=== PATIENT | male | born 1950 | race Caucasian/White ===

== ENCOUNTER → 2017-09-24 | Outpatient (CLI) | payer MEDICARE ==
[2017-09-24 14:55] LABS: CREATININE 0.9 mg/dL (0.5-1.5)
== END | disposition home or self-care (01) ==
LOC: LAB 14:00
PROVIDERS: ATTEND Internal Medicine
DX: J98.4 Other disorders of lung (principal)
CPT/HCPCS: 36415; 82565; 84520

== ENCOUNTER → 2017-09-27 | Outpatient (CLI) | payer MEDICARE ==
[~2017-09-27] MED LIST: IOPAMIDOL-370 75 ML VIAL IV ONE
== END | disposition home or self-care (01) ==
LOC: RAH 10:00
PROVIDERS: ATTEND Internal Medicine
DX: R91.1 Solitary pulmonary nodule (principal); I71.2 Thoracic aortic aneurysm, without rupture; I70.0 Atherosclerosis of aorta; I25.10 Atherosclerotic heart disease of native coronary artery without angina pectoris
CPT/HCPCS: 71260; Q9967

== ENCOUNTER → 2018-10-24 | Outpatient (CLI) | payer MEDICARE | END | disposition home or self-care (01) | LOC: RAH 14:19 | PROVIDERS: ATTEND Internal Medicine | DX: J98.4 Other disorders of lung (principal) | CPT/HCPCS: 71250 ==

== ENCOUNTER 2021-11-08 14:05 | Emergency (ER) | payer MEDICARE ==
[~2021-11-08] VITALS: Ht 175.3 cm; Wt 72.6 kg
[2021-11-08] MEDS ORDERED: KETOROLAC 15MG/ML VIAL (15MG/ML) ONE (14:22)
[2021-11-08] MEDS ORDERED: CLINDAMYCIN IVPB 600MG/50ML 50 ML IV ONE (14:22)
[2021-11-08 14:30] LABS: BASOPHILS % (AUTO) 0.3 % (0.0-5.0); EOSINOPHILS % (AUTO) 0.7 % (0.0-8.0); HEMATOCRIT 43.2 % (42-54); LYMPHOCYTES % (AUTO) 12.7 % (21.0-51.0); MEAN CORPUSCULAR HEMOGLOBIN 29.9 pg (27.0-33.0); MEAN CORPUSCULAR HGB CONC 34.3 g/dL (32.0-36.0); MEAN CORPUSCULAR VOLUME 87.3 fL (79-99); MONOCYTES % (AUTO) 8.7 % (3.0-13.0); NEUTROPHILS % (AUTO) 77.2 % (40.0-77.0); PLATELET COUNT (AUTO) 144 K/uL (130-400); RED BLOOD CELL COUNT(AUTO) 4.95 MIL/uL (4.50-6.20); RED CELL DISTRIBUTION WIDTH 12.4 % (11.0-15.5); WHITE BLOOD COUNT (AUTO) 10.2 K/uL (4.8-10.8)
[2021-11-08] MEDS ORDERED: 0.9%NACL 1000ML 1,000 ML IV ONE (14:30)
[2021-11-08] MEDS ORDERED: KETOROLAC 15MG/ML VIAL (15MG/ML) IV ONE (14:30)
[2021-11-08] MEDS ORDERED: CLINDAMYCIN IVPB 600MG/50ML 50 ML IV SCH (14:30)
[2021-11-08 14:43] LABS: CREATININE 0.8 mg/dL (0.5-1.5); POTASSIUM 3.5 mmol/L (3.5-5.1)
[2021-11-08 14:49] LABS: ALBUMIN 3.7 g/dL (3.5-5.0); BILIRUBIN,TOTAL 1.4 mg/dL (0.2-1.0); TOTAL PROTEIN, SERUM 7.3 g/dL (6.0-8.3)
[2021-11-08 15:37] LABS: ERYTHROCYTE SEDIMENTATION RATE 5 MM/HR (0-20)
[2021-11-08] MEDS ORDERED: CLIN-141 PO (17:17)
[2021-11-08 17:44] VITALS: BP 123/73
== END 2021-11-08 17:34 | disposition home or self-care (01) ==
LOC: EDH 14:05
DX: S61.451A Open bite of right hand, initial encounter (principal); L03.113 Cellulitis of right upper limb; Z88.0 Allergy status to penicillin; Z90.89 Acquired absence of other organs; W54.0XXA Bitten by dog, initial encounter; Y93.89 Activity, other specified; Y92.89 Other specified places as the place of occurrence of the external cause; Y99.8 Other external cause status
CPT/HCPCS: 36415; 73130; 80053; 83605; 85025; 85651; 87040 ×2; 96365; 96366; 96375; 99284; J1885; J3490

== ENCOUNTER 2022-04-20 05:38 | Observation (INO) | payer MEDICARE ==
[2022-04-17 11:32] LABS: BASOPHILS % (AUTO) 0.5 % (0.0-5.0); HEMATOCRIT 42.8 % (42-54); LYMPHOCYTES % (AUTO) 20.9 % (21.0-51.0); MEAN CORPUSCULAR HEMOGLOBIN 30.4 pg (27.0-33.0); MEAN CORPUSCULAR HGB CONC 34.6 g/dL (32.0-36.0); MEAN CORPUSCULAR VOLUME 87.9 fL (79-99); MONOCYTES % (AUTO) 8.2 % (3.0-13.0); NEUTROPHILS % (AUTO) 69.1 % (40.0-77.0); PLATELET COUNT (AUTO) 139 K/uL (130-400); RED BLOOD CELL COUNT(AUTO) 4.87 MIL/uL (4.50-6.20); RED CELL DISTRIBUTION WIDTH 12.3 % (11.0-15.5)
[2022-04-17 11:37] LABS: ALBUMIN 3.9 g/dL (3.5-5.0); CARBON DIOXIDE 31 mmol/L (21-32); CHLORIDE 102 mmol/L (101-111); CREATININE 0.8 mg/dL (0.5-1.5); GLOMERULAR FILTR. RATE CALC 101 mL/min (>60); GLUCOSE,RANDOM 103 mg/dL (70-105); POTASSIUM 3.6 mmol/L (3.5-5.1); SODIUM SERUM 139 mmol/L (136-145); UREA NITROGEN, BLOOD 20 mg/dL (7-18)
[2022-04-17 11:40] LABS: CRP QUANTITATIVE < 2.00 mg/L (0.00-9.0)
[2022-04-17 11:40] LABS: APPEARANCE,URINE CLEAR (CLEAR); BILIRUBIN,URINE NEGATIVE (NEGATIVE); COLOR,URINE YELLOW (YELLOW); GLUCOSE, URINE (UA) NEGATIVE (NEGATIVE); KETONES,URINE NEGATIVE (NEGATIVE); LEUKOCYTE ESTERASE ,URINE NEGATIVE (NEGATIVE); NITRATE,URINE NEGATIVE (NEGATIVE); OCCULT BLOOD,URINE NEGATIVE (NEGATIVE); PROTEIN,URINE NEGATIVE (NEGATIVE); UROBILINOGEN,URINE 0.2 mg/dL (0.2-1.0)
[2022-04-17 11:43] LABS: PROTHROMBIN TIME 10.9 SEC (9.6-11.6)
[2022-04-17 11:45] LABS: PARTIAL THROMBOPLASTIN TIME 27.1 SEC (26.3-35.5)
[2022-04-17 15:05] VITALS: BP 136/82
[2022-04-20] VITALS (25 sets, daily range): BP systolic 117–147; BP diastolic 64–90
[~2022-04-20] VITALS: Ht 175.3 cm; Wt 76.2 kg
[2022-04-20] MEDS ORDERED: LACTATED RINGERS 1000ML 1,000 ML IV ONE (05:59)
[2022-04-20] MEDS ORDERED: CLINDAMYCIN IVPB 900MG/50ML 50 ML IV SCH (06:00)
[2022-04-20] MEDS ORDERED: KETOROLAC 30MG VIAL (30MG/ML) ONE (06:50)
[2022-04-20] MEDS ORDERED: ROPIVACAINE 0.5% 5MG/ML 30ML IJ ONE ×2 (06:50→07:15)
[2022-04-20] MEDS ORDERED: SUCCINYLCHOLINE CHLORIDE 20 MG/ML 10 ML VIAL ONE (07:13)
[2022-04-20] MEDS ORDERED: PROPOFOL 10 MG/ML 20ML VIAL IV ONE (07:13)
[2022-04-20] MEDS ORDERED: ROCURONIUM 10MG/1ML SYR 10 MG/ML ML ONE (07:14)
[2022-04-20] MEDS ORDERED: DEXAMETHASONE SOD PHOSPHATE 10MG/ML 1ML VIAL ONE (07:14)
[2022-04-20] MEDS ORDERED: MIDAZOLAM HCL 1 MG/ML 2ML VIAL ONE (07:14)
[2022-04-20] MEDS ORDERED: ONDANSETRON 4MG INJ ONE (07:14)
[2022-04-20] MEDS ORDERED: NEOSTIGMINE 5MG/5ML SYR IV ONE (07:14)
[2022-04-20] MEDS ORDERED: GLYCOPYRROLATE 1 MG/5 ML SYRINGE ONE (07:14)
[2022-04-20] MEDS ORDERED: FENTANYL CITRATE PF 50 MCG/1 ML 2ML VIAL ONE ×2 (07:15→07:46)
[2022-04-20] MEDS ORDERED: TRANEXAMIC ACID 1000MG/10ML ONE (07:49)
[2022-04-20] MEDS ORDERED: MEPERIDINE-PF 25 MG/ML SYG ONE ×2 (09:14→10:12)
[2022-04-20] MEDS ORDERED: LIDOCAINE HCL-MPF 1% 2ML VIAL IV PRN (10:00)
[2022-04-20] MEDS ORDERED: CYCLOBENZAPRINE HCL 10 MG TABLET PO PRN (10:00)
[2022-04-20] MEDS ORDERED: FERROUS FUMARATE 324 MG TABLET PO PRN (10:00)
[2022-04-20] MEDS ORDERED: ONDANSETRON 4MG INJ IVP PRN (10:00)
[2022-04-20] MEDS ORDERED: CALCIUM CARB 500MG PO PRN (10:00)
[2022-04-20] MEDS ORDERED: TRAMADOL HCL 50 MG TABLET PO PRN (10:00)
[2022-04-20] MEDS ORDERED: POTASSIUM CHLORIDE 20MEQ/100ML 100 ML IV PRN (10:00)
[2022-04-20] MEDS ORDERED: KCL 20 MEQ ERTAB PO PRN (10:00)
[2022-04-20] MEDS ORDERED: 0.9%NACL 1000ML 1,000 ML IV SCH (10:00)
[2022-04-20] MEDS ORDERED: HYDROCODONE/ACETAMINOPHEN 5/325 MG TAB PO PRN ×2 (10:00)
[2022-04-20] MEDS ORDERED: POTASSIUM CHLORIDE 10% ELIXIR 20 MEQ/15 ML UDCUP PO PRN (10:00)
[2022-04-20] MEDS: KETOROLAC 15MG/ML VIAL (15MG/ML) IV SCH ×3 (11:13→21:13)
[2022-04-20] MEDS: GABAPENTIN 100 MG CAPSULE PO SCH ×2 (14:11→21:05)
[2022-04-20] MEDS: CLINDAMYCIN IVPB 900MG/50ML 50 ML IV SCH ×2 (15:23→23:00)
[2022-04-20] MEDS: DOCUSATE SODIUM 100 MG CAP PO SCH (21:05)
[2022-04-21 01:18] VITALS: BP 111/60
[2022-04-21 04:27] VITALS: BP 113/64
[2022-04-21 06:00] LABS: HEMATOCRIT 38.1 % (42-54); MEAN CORPUSCULAR HEMOGLOBIN 30.5 pg (27.0-33.0); MEAN CORPUSCULAR HGB CONC 34.4 g/dL (32.0-36.0); MEAN CORPUSCULAR VOLUME 88.6 fL (79-99); RED BLOOD CELL COUNT(AUTO) 4.3 MIL/uL (4.50-6.20); RED CELL DISTRIBUTION WIDTH 12.4 % (11.0-15.5)
[2022-04-21] MEDS ORDERED: CLINDAMYCIN IVPB 900MG/50ML 50 ML IV ONE (06:16)
[2022-04-21 06:18] LABS: CREATININE 0.8 mg/dL (0.5-1.5); POTASSIUM 3.2 mmol/L (3.5-5.1)
[2022-04-21] MEDS: DOCUSATE SODIUM 100 MG CAP PO SCH (07:54)
[2022-04-21 08:28] VITALS: BP 114/58
[2022-04-21] MEDS ORDERED: ASPIRIN 325MG TAB PO SCH (09:00)
[2022-04-21] MEDS ORDERED: POLYETHYLENE GLYCOL 3350 17 GM POWD.PACK PO SCH (09:00)
[2022-04-21] MEDS: GABAPENTIN 100 MG CAPSULE PO SCH ×2 (09:42→14:31)
[2022-04-21 11:08] VITALS: BP 109/57
[2022-04-21 16:01] VITALS: BP 103/57
[2022-04-21] MEDS ORDERED: ASPI-1026 PO (16:29)
[2022-04-21] MEDS ORDERED: Docusate Sodium 100 Mg Cap PO (16:29)
[2022-04-21] MEDS ORDERED: HYDR-4060 PO (16:29)
[2022-04-21] MEDS ORDERED: CYCL-309 PO (16:29)
[2022-04-21] MEDS ORDERED: GABA100C PO (16:29)
[2022-04-23] MEDS ORDERED: BISACODYL 10 MG SUPP.RECT RC PRN (10:00)
== END 2022-04-21 18:29 | disposition home health service (06) ==
LOC: DAH 05:38 → DAHIP 05:39 → INTOOBSV 05:39 → 4AH 11:09
PROVIDERS: ADMIT Student in an Organized Health Care Education/Training Program; ATTEND Student in an Organized Health Care Education/Training Program
DX: M17.12 Unilateral primary osteoarthritis, left knee (principal); Z20.822 Contact with and (suspected) exposure to COVID-19
CPT/HCPCS: 82040; 80048 ×2; 85025; 85610; 85730; 87088; 84134; 86140; 87426; 81003; 36415 ×2; 87641; 27447; 96376; 96365; 96366; 96375; 73560; 97039 ×2; 85027; 97161; 97116 ×2; 97530 ×2; A4663; J7120 ×2; A4215 ×2; J3010 ×2; J3490 ×7; J1100; J2710; J0330; J2250; J2704; J2405; J1885 ×4; J2175 ×2; J2795 ×2; G0168; A4649 ×3; A4930; C1776; A6255; A5120; A4223; A4222; A4221; G0378 ×2

== ENCOUNTER → 2023-06-11 | Outpatient (CLI) | payer MEDICARE ==
[~2023-06-11] MED LIST changes: +ASPI-1026 PO; +CYCL-309 PO; +Docusate Sodium 100 Mg Cap PO; +GABA100C PO; +HYDR-4060 PO; -IOPAMIDOL-370 75 ML VIAL IV ONE
== END | disposition home or self-care (01) ==
LOC: RAH 10:00
PROVIDERS: ATTEND Internal Medicine
DX: R10.9 Unspecified abdominal pain (principal)
CPT/HCPCS: 76700